=== PATIENT | male | born 2000 | race Caucasian/White ===

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

== ENCOUNTER 2018-01-29 19:25 | Emergency (ER) | payer OTHER ==
[~2018-01-29] VITALS: Ht 182.9 cm; Wt 62.4 kg
[~2018-01-29 19:25] MED LIST changes: -CYCL5TAB PO; -NAPR40TA PO; +ZOFR4TAB3 SL
[2018-01-29 19:31] VITALS: BP 142/73; PULSE 60; RESP 16; TEMP 99.5; O2SAT 99
[2018-01-29] MEDS ORDERED: LIDOCAINE HCL 1% PF 30 ML VIAL ONE (19:57)
[2018-01-29] MEDS ORDERED: LIDOCAINE HCL 1% 50 ML VIAL INFIL ONE (20:00)
--- NOTE | 2018-01-29 20:00 | PD ---
HPI Chief Complaint: Laceration/Skin Injury Time Seen by Provider: 19:52 Travel History International Travel<30 days: No Contact w/Intl Traveler<30days: No Traveled to known affect area: No History of Present Illness HPI 17-year-old male presents emergency department for evaluation of a laceration to his left palm that occurred to 3 hours ago. Says that he was working on a motorcycle when he was cut. He says the area is mildly painful to palpation and movement of his hand and wrist. He denies numbness or tingling. Denies weakness of the hand. Says he was able to control the bleeding prior to arrival. Says his tetanus vaccination is up-to-date. [facility] Past Medical History Medical History: Denies Significant Hx Diminished Hearing: No Immunizations Current: Yes Tetanus Vaccination: < 5 Years Influenza Vaccination: No Past Surgical History Surgical History: No Previous Surgery Social History Alcohol Use: No Tobacco Use: Yes (/ PPD) Substance Use: No Allergies-Medications (Allergen,Severity, Reaction): Coded Allergies: No Known Allergies (Verified Adverse Reaction, Unknown, 01/29/18) Reported Meds & Prescriptions Reported Meds & Active Scripts Active No Active Prescriptions or Reported Medications Review of Systems Except as stated in HPI: all other systems reviewed are Neg Physical Exam Narrative GENERAL: Well-developed well-nourished no apparent distress SKIN: Focused skin assessment warm/dry. Left palm 1.5cm laceration to hypothenar prominence. HEAD: Atraumatic. Normocephalic. EYES: No scleral icterus. No injection or drainage. ENT: No nasal bleeding or discharge. Mucous membranes pink and moist. NECK: Trachea midline. No JVD. CARDIOVASCULAR: Regular rate and rhythm. No murmur appreciated. RESPIRATORY: No accessory muscle use. Clear to auscultation. Breath sounds equal bilaterally. MUSCULOSKELETAL: No obvious deformities. No clubbing. No cyanosis. No edema. NEUROLOGICAL: Awake and alert. No obvious cranial nerve deficits. Motor grossly within normal limits. Normal speech. Neurovascular intact left hand PSYCHIATRIC: Appropriate mood and affect; insight and judgment normal. Data Data Last Documented VS Vital Signs Date Time Temp Pulse Resp B/P (MAP) Pulse Ox O2 Delivery O2 Flow Rate FiO2 01/29/18 19:31 99.5 60 16 142/73 (96) 99 Orders Orders Lidocaine 1% Inj (50 Ml) (Xylocaine 1% I (01/29/18 20:00) Lidocaine Pf 1% Inj (Xylocaine-Mpf 1% In (01/29/18 19:57) Ed Discharge Order (01/29/18 20:19) [facility] Medical Decision Making Medical Screen Exam Complete: Yes Emergency Medical Condition: Yes Differential Diagnosis Left hand laceration, avulsion, abrasion Narrative Course 17-year-old male presents emergency department for evaluation of laceration to left palm that has been present for 2-3 hours. Physical exam findings consistent with laceration, neurovascular intact left hand. Area was soaked and irrigated thoroughly. Laceration repair completed. steri strips placed. Advised on wound care. Suture removal in 7-10 days. Procedures Procedure Narrative LACERATION LOCATION: Left hypo-thenar prominence LENGTH: 1-1/2 cm NUMBER OF STITCHES/ANN: 4 5-0 Prolene REPAIR: The area of the laceration was prepped with Betadine and sterilely draped. The laceration was infiltrated with 1% lidocaine without epinephrine. The wound was copiously irrigated and explored without evidence of foreign body, tendon injury or neurovascular injury. The wound was closed using 5-0 Prolene. This was a single layer repair. A sterile dressing was applied. The patient was advised to keep the dressing clean and dry. Patient tolerated the procedure well. Diagnosis Primary Impression: Laceration of palm Qualified Codes: S61.412A - Laceration without foreign body of left hand, initial encounter Referrals: Primary Care Physician Additional Instructions: Follow up with your primary care physician within 2-3 days. Keep area clean and dry for 24 hours. After 24 hours, you may bathe as normal but dry the area thoroughly. Change dressings daily. If bleeding starts, apply pressure and elevate the area. If you developed increased redness, swelling, or pain return to the emergency department as this could be a sign of infection. Suture removal in 7-10 days. Scripts No Active Prescriptions or Reported Meds Disposition: 01 DISCHARGE HOME Condition: Stable Karey Ornelas Jan 29, 2018 20:00
== END 2018-01-29 20:24 | disposition home or self-care (01) ==
LOC: PHEFT 19:25
DX: S61.412A Laceration without foreign body of left hand, initial encounter (principal); W45.8XXA Other foreign body or object entering through skin, initial encounter; F17.200 Nicotine dependence, unspecified, uncomplicated
CPT/HCPCS: 12001